=== PATIENT | female | born 1990 | race Asian ===

== ENCOUNTER 2021-06-24 20:24 | Emergency (ER) | payer BC ==
[2021-06-24] MEDS ORDERED: Ketorolac 30 MG/ML SDV IVPUSH ONE (20:52)
[2021-06-24] MEDS: Sodium Chloride 0.9% 10 ML Syringe FLUSH PRN ×2 (21:35→22:00)
[2021-06-24] MEDS ORDERED: Sodium Chloride 0.9% 10 ML SDV FLUSH ONE (21:50)
[2021-06-24] MEDS ORDERED: Iopamidol 612 MG/ML 100 ML Bottle IVPUSH ONE (21:50)
[2021-06-24 22:25] LABS: CORONAVIRUS COVID-19 NAA NEGATIVE (NEGATIVE)
== END 2021-06-24 23:00 | disposition home or self-care (01) ==
LOC: JD.ED 20:24
DX: J06.9 Acute upper respiratory infection, unspecified (principal); R59.0 Localized enlarged lymph nodes; Z20.822 Contact with and (suspected) exposure to COVID-19
CPT/HCPCS: 0240U; 36415; 70491; 80053; 85025; 86140; 86308; 87651; 96374; 99284; J1885; Q9967

== ENCOUNTER 2024-01-15 21:11 | Emergency (ER) | payer BC ==
[2024-01-15] MEDS ORDERED: Sodium Chloride 0.9% 10 ML Syringe FLUSH PRN (22:30)
[2024-01-15 22:51] LABS: BASOPHILS PERCENT AUTO 0.3 % (0.0-1.0); EOSINOPHILS ABSOLUTE AUTO 0.2 K/mm3 (0.0-0.4); EOSINOPHILS PERCENT AUTO 1.6 % (0.0-6.0); HEMATOCRIT 38.8 % (37.0-47.0); HEMOGLOBIN 12.9 gm/dl (12.0-16.0); IMMATURE GRAN ABSOLUTE AUTO 0.04 K/mm3 (0.00-0.05); IMMATURE GRAN PERCENT AUTO 0.4 % (0.0-0.4); LYMPHOCYTES ABSOLUTE AUTO 3.1 K/mm3 (1.0-4.8); LYMPHOCYTES PERCENT AUTO 32.6 % (24.0-44.0); MEAN CORPUSCULAR HEMOGLOBIN 28.6 pg (28.0-32.0); MEAN CORPUSCULAR HGB CONC 33.2 g/dl (32.0-36.0); MEAN PLATELET VOLUME 8.7 fl (9.4-12.3); MONOCYTES ABSOLUTE AUTO 0.8 K/mm3 (0.0-0.8); MONOCYTES PERCENT AUTO 8.6 % (0.0-8.0); NEUTROPHILS ABSOLUTE AUTO 5.4 K/mm3 (1.8-7.7); NEUTROPHILS PERCENT AUTO 56.5 % (41.0-71.0); PLATELET COUNT,PLT 250 K/mm3 (150-400); RED BLOOD CELL COUNT 4.51 M/mm3 (4.10-5.30); WHITE BLOOD CELL COUNT,WBC 9.46 K/mm3 (3.9-11.3)
[2024-01-15] MEDS: Albuterol/Ipratropium 3.0-0.5 MG/3 ML Neb Soln NEB ONE ×3 (22:56→23:58)
[2024-01-15] MEDS: methylPREDNISolone Sodium Succinate 125 MG/2 ML SDV IVPUSH ONE (23:05)
[2024-01-15 23:40] LABS: ANION GAP 13.4 (5-15); BUN/CREATININE RATIO 11.3 (14-18); CALCIUM 9.2 mg/dL (8.5-10.1); CREATININE 0.8 mg/dL (0.55-1.02); EST CRCL DRUG DOSING (CG) 72.97 mL/min; POTASSIUM,K 3.4 mEq/L (3.5-5.1)
[2024-01-16] MEDS: Potassium Chloride 20 MEQ Tab.ER PO ONE (01:04)
== END 2024-01-16 01:29 | disposition home or self-care (01) ==
LOC: JD.ED 21:11
DX: J45.909 Unspecified asthma, uncomplicated (principal); Z86.16 Personal history of COVID-19
CPT/HCPCS: 36415; 71046; 80048; 84703; 85025; 94640; 96374; 99284; A9270; J2919; 99283; J7620-GY